=== PATIENT | male | born 1960 | race Caucasian/White ===

== ENCOUNTER 2025-01-20 11:38 | Emergency (ER) | payer OTHER, MEDICARE, MEDICAID, SELFPAY ==
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
[2025-01-20 12:07] VITALS: BP 181/68; PULSE 76; RESP 18; TEMP 36.8; O2SAT 98; BMI 28.3
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
[2025-01-20 13:40] VITALS: BP 181/68; PULSE 76; RESP 18; TEMP 36.8; O2SAT 98
== END 2025-01-20 13:41 | disposition home or self-care (01) ==
PROVIDERS: Emergency Provider Emergency Medicine Emergency Medical Services
DX: Z04.1 Encounter for examination and observation following transport accident (principal); M54.2 Cervicalgia; M54.50 Low back pain, unspecified
CPT/HCPCS: 72100; 72125; 99282; 99284

== ENCOUNTER → 2025-01-20 12:11 | Outpatient (BNV) | payer MEDICARE, MEDICAID, SELFPAY | PROVIDERS: Visit Provider Radiology Diagnostic Radiology | DX: M54.2 Cervicalgia (principal); M47.817 Spondylosis without myelopathy or radiculopathy, lumbosacral region | CPT/HCPCS: 72100; 72125 ==

== ENCOUNTER 2025-02-07 13:51 | Outpatient (AMB) | payer OTHER, MEDICARE, MEDICAID, SELFPAY ==
[2025-02-07 13:53] VITALS: BP 142/92; PULSE 105; O2SAT 97; BMI 30.2
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
== END 2025-02-07 14:43 | disposition home or self-care (01) ==
DX: S16.1XXA Strain of muscle, fascia and tendon at neck level, initial encounter (principal); S39.012A Strain of muscle, fascia and tendon of lower back, initial encounter

== ENCOUNTER → 2025-02-07 13:51 | Outpatient (BNVA) | payer OTHER, MEDICARE, MEDICAID, SELFPAY | DX: Z13.89 Encounter for screening for other disorder (principal) ==

== ENCOUNTER 2025-04-11 07:35 | Outpatient (AMB) | payer MEDICARE, MEDICAID, SELFPAY ==
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
[2025-04-11 08:08] VITALS: BP 142/70; TEMP 36.4; O2SAT 96; BMI 29.0
[2025-04-11 08:37] VITALS: BP 148/80
== END 2025-04-11 08:46 | disposition home or self-care (01) ==
LOC: HO.HMCH 07:36
DX: F41.9 Anxiety disorder, unspecified (principal); F33.41 Major depressive disorder, recurrent, in partial remission; I10 Essential (primary) hypertension; E78.00 Pure hypercholesterolemia, unspecified; R73.03 Prediabetes; J45.909 Unspecified asthma, uncomplicated

== ENCOUNTER → 2025-04-11 07:35 | Outpatient (BNVA) | payer MEDICARE, MEDICAID, SELFPAY | DX: F41.9 Anxiety disorder, unspecified (principal); F33.41 Major depressive disorder, recurrent, in partial remission; E78.00 Pure hypercholesterolemia, unspecified; I10 Essential (primary) hypertension; R73.03 Prediabetes; J45.909 Unspecified asthma, uncomplicated | CPT/HCPCS: 96127; 96160; 99212 ==

== ENCOUNTER 2025-06-08 08:10 | Outpatient (REF) | payer MEDICARE, MEDICAID, SELFPAY ==
[2025-06-08 08:33] LABS: MANUAL DIFF FLAG NO
[2025-06-08 09:08] LABS: Hematocrit 40.3 % (42.0-52.0); Hemoglobin 13.8 g/dl (14.0-18.0); Imm Gran Abs Auto 0.03 X10*3/uL (0.00-0.03); Imm Gran Pct Auto 0.5 % (0.0-0.4); Lymphocytes Absolute Auto 1.8 X10*3/uL (1.2-4.9); Mean Corpuscular HGB Conc 34.2 g/dl (31.0-36.0); Mean Corpuscular Hemoglobin 32.5 pg (27.0-33.0); Mean Corpuscular Volume 95.0 fL (80.0-98.0); NRBC Abs Auto 0.000 X10*3/uL (0.0-0.012); NRBC Pct Auto 0.0 /100WBC (0.0-0.2); Platelet Count 195 X10*3/uL (160-400); Red Blood Count 4.24 X10*6/uL (4.60-5.80); White Blood Count 5.6 X10*3/uL (4.8-10.8)
[2025-06-08 09:23] LABS: Hemoglobin A1C 149.8606 umol/L; Total Hemoglobin (HGBA1C) 3532.5003 umol/L
[2025-06-08 09:45] LABS: Alanine Aminotransferase 17 U/L (0-40); Albumin Level 4.7 g/dL (3.5-5.0); Alkaline Phosphatase 107 U/L (39-117); Anion Gap 13 (12-20); Aspartate Amino Transferase 24 U/L (5-37); Blood Urea Nitrogen 13 mg/dL (9-16); Calcium 9.3 mg/dL (8.4-10.2); Carbon Dioxide 25 mmol/L (22-29); Chloride 108 mmol/L (96-108); Cholesterol 195 mg/dL (<200); Estimated Glomerular Filt Rate > 60; HDL Cholesterol 40 mg/dL (>40); Potassium 4.0 mmol/L (3.3-5.1); Sodium 142 mmol/L (135-145); Total Protein 7.5 g/dL (6.5-8.0); Triglycerides 164 mg/dL (<150)
[2025-06-08 09:55] LABS: Free T4 (Free Thyroxine) 1.03 ng/dL (0.71-1.85)
[2025-06-08 09:58] LABS: Folate 10.4 ng/mL (> or = 4.0); Vitamin B12 450 pg/mL (200-900)
== END 2025-06-08 08:11 | disposition home or self-care (01) ==
LOC: HO.LAB 08:10
DX: Z00.00 Encounter for general adult medical examination without abnormal findings (principal); Z13.1 Encounter for screening for diabetes mellitus; Z13.0 Encounter for screening for diseases of the blood and blood-forming organs and certain disorders involving the immune mechanism; Z13.29 Encounter for screening for other suspected endocrine disorder; E11.65 Type 2 diabetes mellitus with hyperglycemia; Z13.21 Encounter for screening for nutritional disorder; E78.00 Pure hypercholesterolemia, unspecified; I10 Essential (primary) hypertension
CPT/HCPCS: 36415; 80053; 80061; 82306; 82607; 82746; 83036; 84439; 84443; 85025